=== PATIENT | male | born 1995 | race Caucasian/White ===

== ENCOUNTER 2018-09-25 18:08 | Emergency (ER) | payer MEDICAID ==
[~2018-09-25] VITALS: Ht 175.3 cm; Wt 100.2 kg
[2018-09-25 18:41] VITALS: Ht 175.3 cm; Wt 100.2 kg
[2018-09-25 21:45] VITALS: BP 137/82
== END 2018-09-25 21:45 | disposition home or self-care (01) ==
LOC: ED 18:08
DX: H60.91 Unspecified otitis externa, right ear (principal); Z88.0 Allergy status to penicillin

== ENCOUNTER 2018-11-18 14:20 | Emergency (ER) | payer MEDICAID ==
[~2018-11-18] VITALS: Ht 177.8 cm; Wt 98.9 kg
[2018-11-18 14:23] VITALS: Ht 177.8 cm; Wt 98.9 kg
[2018-11-18 14:57] VITALS: BP 134/77
== END 2018-11-18 14:57 | disposition home or self-care (01) ==
LOC: ED 14:20
DX: H61.21 Impacted cerumen, right ear (principal); Z88.0 Allergy status to penicillin